=== PATIENT | male | born 1935 | race Caucasian/White ===

== ENCOUNTER 2017-07-26 15:03 | Inpatient (IN) | payer MEDICARE, OTHER ==
[~2017-07-26] VITALS: Ht 177.8 cm; Wt 64.4 kg
[2017-07-26] MEDS ORDERED: CARB1TAB46 PO (15:38)
[2017-07-26] MEDS ORDERED: TAMS0.4C2 PO (15:38)
[2017-07-26] MEDS ORDERED: PRAM0.12 PO (15:38)
[2017-07-26] MEDS ORDERED: VALS80TA3 PO (15:38)
[2017-07-26] MEDS ORDERED: MELO15TA24 PO (15:38)
[2017-07-26] MEDS ORDERED: DONE5TAB7 PO (15:38)
[2017-07-26] MEDS ORDERED: CITA20TA5 PO (15:38)
[2017-07-26] MEDS ORDERED: BRIN10DR TP (15:38)
[2017-07-26] MEDS ORDERED: MIRA50TA PO (15:38)
[2017-07-26] MEDS ORDERED: TRAV5DRO OP (15:38)
[2017-07-26 15:54] LABS: TROPONIN I < 0.015 ng/mL (0.000-0.045)
[2017-07-26] MEDS ORDERED: SODIUM CHLORIDE 0.9% 1,000 ML IV ONE (16:00)
[2017-07-26] MEDS ORDERED: [UNRECOGNIZED DRUG - OTHER] PO SCH (16:30)
[2017-07-26] MEDS ORDERED: CARBIDOPA PO SCH (16:30)
[2017-07-26] MEDS ORDERED: ACETAMINOPHEN 325 MG TABLET PO PRN (16:30)
[2017-07-26] MEDS ORDERED: BISACODYL 10 MG SUPP PR PRN (16:30)
[2017-07-26] MEDS ORDERED: POLYETHYLENE GLYCOL 17 GM PACKET PO PRN (16:30)
[2017-07-26] MEDS ORDERED: DOCUSATE 100 MG CAPSULE PO PRN (16:30)
[2017-07-26] MEDS ORDERED: LEVODOPA PO SCH (16:30)
[2017-07-26] MEDS ORDERED: hydrALAzine 20 MG/ML, 1ML IVPush PRN (16:30)
[2017-07-26] MEDS ORDERED: ONDANSETRON 2MG/ML, 2ML IVPush PRN (16:30)
[2017-07-26] MEDS: CARBIDOPA HOMEMEDPO SCH ×4 (18:00→22:36)
[2017-07-26] MEDS: LEVODOPA HOMEMEDPO SCH ×4 (18:00→22:36)
[2017-07-26] MEDS: LACTATED RINGERS 1,000 ML IV SCH (18:30)
[2017-07-26 20:11] VITALS: BP 116/72
[2017-07-26] MEDS ORDERED: TEMPLATE NON-FORMULARY MED. (Mirabegron** (Myrbetriq**) 50 MG) PO SCH (21:00)
[2017-07-26] MEDS ORDERED: TRAVOPROST OPHTH 0.004%, 2.5ML OP SCH (21:00)
[2017-07-26] MEDS: BRINZOLAMIDE TP SCH (22:19)
[2017-07-26] MEDS: PRAMIPEXOLE 0.125MG TABLET PO SCH ×2 (22:23→22:37)
[2017-07-26] MEDS: DONEPEZIL 5 MG TABLET PO SCH ×2 (22:23→22:36)
[2017-07-26] MEDS: NICOTINE 21 MG/24 HR PATCH.TD24 TD SCH (22:24)
[2017-07-26] MEDS: TAMSULOSIN 0.4 MG CAP.ER.24H PO SCH ×2 (22:24→22:36)
[2017-07-26] MEDS: HEPARIN 5,000 UNITS/ML, 1ML SQ SCH (22:24)
[2017-07-26] MEDS ORDERED: HALOPERIDOL 5 MG/ML IM ONE (23:00)
[2017-07-27] MEDS: LACTATED RINGERS 1,000 ML IV SCH ×3 (02:22→16:40)
[2017-07-27 03:39] VITALS: BP 169/88
[2017-07-27] MEDS: LEVODOPA HOMEMEDPO SCH ×6 (03:46→21:56)
[2017-07-27] MEDS: CARBIDOPA HOMEMEDPO SCH ×6 (03:46→21:56)
[2017-07-27 05:06] LABS: BASOPHILS # (AUTO) 0.03 x10^3/uL (0-0.1); BASOPHILS % (AUTO) 0 % (0-1); EOSINOPHILS # (AUTO) 0.14 x10^3/uL (0-0.4); EOSINOPHILS % (AUTO) 2 % (1-7); LYMPHOCYTES # (AUTO) 2.22 x10^3/uL (1-3.4); LYMPHOCYTES % (AUTO) 27 % (22-44); MD NO; MEAN CORPUSCULAR HEMOGLOBIN 34.9 pg (27.5-34.5); MEAN CORPUSCULAR HGB CONC 33.4 g/dL (33.2-36.2); MEAN CORPUSCULAR VOLUME 104.6 fL (81-97); MEAN PLATELET VOLUME 8.4 fL (7.4-10.4); MONOCYTES # (AUTO) 0.77 x10^3/uL (0.2-0.8); MONOCYTES % (AUTO) 9 % (2-9); NEUTROPHILS % (AUTO) 62 % (42-75); PLATELET COUNT 213 x10^3/uL (130-400); RED BLOOD COUNT 3.65 x10^6/uL (4.38-5.82)
[2017-07-27 05:18] LABS: CHLORIDE 108 mmol/L (98-107)
[2017-07-27 05:52] LABS: ALANINE AMINOTRANSFERASE 17 U/L (12-78); ALBUMIN 3.6 g/dL (3.4-5.0); ALKALINE PHOSPHATASE 74 U/L (45-117); ANION GAP 10 mmol/L (5-15); BILIRUBIN,TOTAL 1.1 mg/dL (0.2-1.0); CALCIUM 8.6 mg/dL (8.5-10.1); TOTAL PROTEIN 6.6 g/dL (6.4-8.2)
[2017-07-27 07:02] VITALS: BP 172/78
[2017-07-27] MEDS: HEPARIN 5,000 UNITS/ML, 1ML SQ SCH ×2 (09:00→16:40)
[2017-07-27] MEDS ORDERED: GADOBUTROL 7.5 MMOL/7.5 ML PFS ONE (09:37)
[2017-07-27] MEDS: CITALOPRAM 20 MG TABLET PO SCH (10:25)
[2017-07-27] MEDS: PRAMIPEXOLE 0.125MG TABLET PO SCH ×3 (10:25→21:56)
[2017-07-27] MEDS: MELOXICAM 15 MG TABLET PO SCH (10:25)
[2017-07-27] MEDS: TAMSULOSIN 0.4 MG CAP.ER.24H PO SCH ×2 (10:25→21:56)
[2017-07-27] MEDS: BRINZOLAMIDE TP SCH ×2 (10:26→21:58)
[2017-07-27 13:30] VITALS: BP 163/82
[2017-07-27] MEDS: VALSARTAN 80 MG TABLET PO SCH (14:45)
[2017-07-27 19:11] VITALS: BP 163/80
[2017-07-27] MEDS: LATANOPROST OPHTH 0.005%, 2.5ML OP SCH (21:56)
[2017-07-27] MEDS: DONEPEZIL 5 MG TABLET PO SCH (21:56)
[2017-07-27] MEDS: NICOTINE 21 MG/24 HR PATCH.TD24 TD SCH (21:56)
[2017-07-28] MEDS: HEPARIN 5,000 UNITS/ML, 1ML SQ SCH ×3 (00:45→16:51)
[2017-07-28 02:40] VITALS: BP 164/82
[2017-07-28] MEDS: LACTATED RINGERS 1,000 ML IV SCH (05:44)
[2017-07-28] MEDS: CARBIDOPA HOMEMEDPO SCH ×5 (06:27→20:16)
[2017-07-28] MEDS: LEVODOPA HOMEMEDPO SCH ×5 (06:27→20:16)
[2017-07-28] MEDS: VALSARTAN 80 MG TABLET PO SCH (06:28)
[2017-07-28 09:00] VITALS: BP 164/79
[2017-07-28] MEDS: MELOXICAM 15 MG TABLET PO SCH (09:17)
[2017-07-28] MEDS: CITALOPRAM 20 MG TABLET PO SCH (09:17)
[2017-07-28] MEDS: TAMSULOSIN 0.4 MG CAP.ER.24H PO SCH ×2 (09:17→20:16)
[2017-07-28] MEDS: PRAMIPEXOLE 0.125MG TABLET PO SCH ×3 (09:17→20:16)
[2017-07-28] MEDS: BRINZOLAMIDE TP SCH ×2 (09:17→20:16)
[2017-07-28] MEDS: VALPROATE SODIUM 500 MG in SODIUM CHLORIDE 0.9% 100 ML IV SCH ×2 (11:42→20:16)
[2017-07-28 12:25] LABS: MICROSCOPIC NOT IND
[2017-07-28 12:26] LABS: CULTURE INDICATED? NO
[2017-07-28 15:25] VITALS: BP 145/75
[2017-07-28 20:09] VITALS: BP 167/86
[2017-07-28] MEDS: DONEPEZIL 5 MG TABLET PO SCH (20:15)
[2017-07-28] MEDS: LATANOPROST OPHTH 0.005%, 2.5ML OP SCH (20:16)
[2017-07-28] MEDS: NICOTINE 21 MG/24 HR PATCH.TD24 TD SCH (20:17)
[2017-07-29] MEDS: HEPARIN 5,000 UNITS/ML, 1ML SQ SCH ×3 (01:00→18:43)
[2017-07-29 03:53] VITALS: BP 172/73
[2017-07-29] MEDS: VALSARTAN 80 MG TABLET PO SCH (05:34)
[2017-07-29] MEDS: CARBIDOPA HOMEMEDPO SCH ×4 (05:34→18:00)
[2017-07-29] MEDS: LEVODOPA HOMEMEDPO SCH ×4 (05:34→18:00)
[2017-07-29 05:42] LABS: CHLORIDE 109 mmol/L (98-107)
[2017-07-29 05:46] LABS: BASOPHILS # (AUTO) 0.04 x10^3/uL (0-0.1); BASOPHILS % (AUTO) 1 % (0-1); EOSINOPHILS % (AUTO) 4 % (1-7); LYMPHOCYTES # (AUTO) 1.38 x10^3/uL (1-3.4); LYMPHOCYTES % (AUTO) 26 % (22-44); MD NO; MEAN CORPUSCULAR HGB CONC 34.4 g/dL (33.2-36.2); MEAN CORPUSCULAR VOLUME 104.5 fL (81-97); MEAN PLATELET VOLUME 8.1 fL (7.4-10.4); MONOCYTES # (AUTO) 0.48 x10^3/uL (0.2-0.8); MONOCYTES % (AUTO) 9 % (2-9); NEUTROPHILS # (AUTO) 3.23 x10^3/uL (1.8-6.8); NEUTROPHILS % (AUTO) 61 % (42-75); PLATELET COUNT 203 x10^3/uL (130-400); RED BLOOD COUNT 3.52 x10^6/uL (4.38-5.82); RED CELL DISTRIBUTION WIDTH 15.2 % (9.4-14.8)
[2017-07-29 05:50] LABS: ANION GAP 6 mmol/L (5-15); CALCIUM 8.6 mg/dL (8.5-10.1); CREATININE 0.93 mg/dL (0.7-1.3)
[2017-07-29 07:22] VITALS: BP 138/72
[2017-07-29] MEDS: VALPROATE SODIUM 500 MG in SODIUM CHLORIDE 0.9% 100 ML IV SCH (09:58)
[2017-07-29] MEDS: TAMSULOSIN 0.4 MG CAP.ER.24H PO SCH ×2 (09:58→21:06)
[2017-07-29] MEDS: LACTATED RINGERS 1,000 ML IV SCH (10:02)
[2017-07-29] MEDS: PRAMIPEXOLE 0.125MG TABLET PO SCH ×3 (10:06→21:06)
[2017-07-29] MEDS: LATANOPROST OPHTH 0.005%, 2.5ML OP SCH ×2 (10:23→21:06)
[2017-07-29] MEDS: BRINZOLAMIDE TP SCH (10:28)
[2017-07-29] MEDS: CITALOPRAM 20 MG TABLET PO SCH (10:38)
[2017-07-29] MEDS: MELOXICAM 15 MG TABLET PO SCH (10:38)
[2017-07-29 12:10] VITALS: BP 99/62
[2017-07-29 19:39] VITALS: BP 127/65
[2017-07-29] MEDS: CARBIDOPA/LEVODOPA 10 MG/100 MG TABLET PO SCH (21:05)
[2017-07-29] MEDS: DONEPEZIL 5 MG TABLET PO SCH (21:05)
[2017-07-29] MEDS: DIVALPROEX 500 MG TABLET.DR PO SCH (21:06)
[2017-07-29] MEDS: NICOTINE 21 MG/24 HR PATCH.TD24 TD SCH (21:06)
[2017-07-30] MEDS: HEPARIN 5,000 UNITS/ML, 1ML SQ SCH ×3 (01:47→18:48)
[2017-07-30 04:22] VITALS: BP 172/77
[2017-07-30 04:30] VITALS: BP 168/71
[2017-07-30] MEDS: LACTATED RINGERS 1,000 ML IV SCH (04:32)
[2017-07-30] MEDS: CARBIDOPA/LEVODOPA 10 MG/100 MG TABLET PO SCH ×5 (05:52→20:40)
[2017-07-30] MEDS: VALSARTAN 80 MG TABLET PO SCH (05:52)
[2017-07-30 06:53] VITALS: BP 133/78
[2017-07-30] MEDS: BRINZOLAMIDE TP SCH ×2 (09:00→20:40)
[2017-07-30] MEDS: PRAMIPEXOLE 0.125MG TABLET PO SCH ×3 (09:00→20:40)
[2017-07-30] MEDS: CITALOPRAM 20 MG TABLET PO SCH (09:51)
[2017-07-30] MEDS: DIVALPROEX 500 MG TABLET.DR PO SCH ×2 (09:51→20:40)
[2017-07-30] MEDS: TAMSULOSIN 0.4 MG CAP.ER.24H PO SCH ×2 (09:51→20:40)
[2017-07-30] MEDS: MELOXICAM 15 MG TABLET PO SCH (09:52)
[2017-07-30 12:19] VITALS: BP 125/76
[2017-07-30 15:03] LABS: % IRON SATURATION 47 % (20-55); IRON LEVEL 97 mcg/dL (65-175); TOTAL IRON BINDING CAPACITY 207 mcg/dL (250-450)
[2017-07-30 19:05] VITALS: BP 147/72
[2017-07-30] MEDS: DONEPEZIL 5 MG TABLET PO SCH (20:40)
[2017-07-30] MEDS: LATANOPROST OPHTH 0.005%, 2.5ML OP SCH (20:41)
[2017-07-30] MEDS: NICOTINE 21 MG/24 HR PATCH.TD24 TD SCH (20:55)
[2017-07-31] MEDS: HEPARIN 5,000 UNITS/ML, 1ML SQ SCH ×3 (00:47→17:00)
[2017-07-31] MEDS: LACTATED RINGERS 1,000 ML IV SCH (00:48)
[2017-07-31 01:02] VITALS: BP 154/75
[2017-07-31] MEDS: CARBIDOPA/LEVODOPA 10 MG/100 MG TABLET PO SCH ×4 (05:25→17:53)
[2017-07-31] MEDS: VALSARTAN 80 MG TABLET PO SCH (05:25)
[2017-07-31 06:57] VITALS: BP 129/77
[2017-07-31] MEDS: TAMSULOSIN 0.4 MG CAP.ER.24H PO SCH (09:51)
[2017-07-31] MEDS: MELOXICAM 15 MG TABLET PO SCH (09:51)
[2017-07-31] MEDS: DIVALPROEX 500 MG TABLET.DR PO SCH (09:51)
[2017-07-31] MEDS: PRAMIPEXOLE 0.125MG TABLET PO SCH ×2 (09:52→17:54)
[2017-07-31] MEDS: BRINZOLAMIDE TP SCH (09:52)
[2017-07-31] MEDS: CITALOPRAM 20 MG TABLET PO SCH (09:53)
[2017-07-31 13:25] VITALS: BP 156/77
[2017-07-31] MEDS ORDERED: DIVA-68 PO (14:26)
[2017-07-31 15:33] LABS: BASOPHILS # (AUTO) 0.03 x10^3/uL (0-0.1); BASOPHILS % (AUTO) 1 % (0-1); EOSINOPHILS # (AUTO) 0.17 x10^3/uL (0-0.4); EOSINOPHILS % (AUTO) 3 % (1-7); LYMPHOCYTES # (AUTO) 1.82 x10^3/uL (1-3.4); LYMPHOCYTES % (AUTO) 34 % (22-44); MD NO; MEAN CORPUSCULAR HEMOGLOBIN 35.7 pg (27.5-34.5); MEAN CORPUSCULAR HGB CONC 34.2 g/dL (33.2-36.2); MEAN CORPUSCULAR VOLUME 104.3 fL (81-97); MEAN PLATELET VOLUME 7.8 fL (7.4-10.4); MONOCYTES # (AUTO) 0.48 x10^3/uL (0.2-0.8); MONOCYTES % (AUTO) 9 % (2-9); NEUTROPHILS % (AUTO) 53 % (42-75); PLATELET COUNT 215 x10^3/uL (130-400); RED CELL DISTRIBUTION WIDTH 15.2 % (9.4-14.8)
[2017-07-31 15:47] LABS: ANION GAP 7 mmol/L (5-15); CALCIUM 8.9 mg/dL (8.5-10.1); CHLORIDE 106 mmol/L (98-107)
[2017-07-31 15:48] LABS: CREATININE 0.99 mg/dL (0.7-1.3)
== END 2017-07-31 18:21 | DRG 100 ==
LOC: ED 15:49 → EDIP 15:50 → 3NW 16:15 → ED 16:37
PROVIDERS: ADMIT Family Medicine; ATTEND Family Medicine
DX: G40.209 Localization-related (focal) (partial) symptomatic epilepsy and epileptic syndromes with complex partial seizures, not intractable, without status epilepticus (principal); G93.49 Other encephalopathy; G20 Parkinson's disease; D53.9 Nutritional anemia, unspecified; R13.10 Dysphagia, unspecified; W18.39XA Other fall on same level, initial encounter; E86.0 Dehydration; F03.90 Unspecified dementia, unspecified severity, without behavioral disturbance, psychotic disturbance, mood disturbance, and anxiety; F32.9 Major depressive disorder, single episode, unspecified; I10 Essential (primary) hypertension; M19.90 Unspecified osteoarthritis, unspecified site; R32 Unspecified urinary incontinence; H40.9 Unspecified glaucoma; Z87.891 Personal history of nicotine dependence; Z85.46 Personal history of malignant neoplasm of prostate; Y93.89 Activity, other specified; Y92.89 Other specified places as the place of occurrence of the external cause; Y99.8 Other external cause status
CPT/HCPCS: 36415; 70553; 71045; 80048; 80053; 80164; 81003; 82140; 82607; 82746; 83540; 83550; 83735; 84100; 84443; 84484; 85025; 93005; 95819; 99285; A9585; J1644; J1630; J7120